=== PATIENT | female | born 1945 | race Caucasian/White ===

== ENCOUNTER 2017-06-09 00:55 | Inpatient (IN) | payer BC, MEDICARE, OTHER ==
[~2017-06-09] VITALS: Ht 157.5 cm; Wt 73.9 kg
[2017-06-09] MEDS ORDERED: SODIUM CHLORIDE 0.9% 1,000 ML IV ONE (01:39)
[2017-06-09] MEDS ORDERED: ASPIRIN 81MG TABLET PO ONE (01:45)
[2017-06-09 01:56] LABS: BASOPHILS % 0.4 % (0.0-2.0); EOSINOPHILS % 3.5 % (0.0-5.0); HEMATOCRIT. 40.8 % (36.0-48.0); HEMOGLOBIN. 13.4 g/dL (12.0-16.0); LYMPHOCYTES % 8.8 % (20.0-50.0); MEAN CORPUSCULAR HEMOGLOBIN 31.9 pg (28.0-32.0); MEAN PLATELET VOLUME 8.4 fl (7.4-10.4); MONOCYTES % 6.5 % (2.0-8.0); NEUTROPHILS % 80.8 % (40.0-76.0); PLATELET 238 x1000/uL (130-400); RED BLOOD CELL COUNT 4.21 mill/uL (4.2-5.4); RED CELL DISTRIBUTION WIDTH 15.4 % (11.6-14.6)
[2017-06-09 02:04] LABS: PROTHROMBIN TIME 10.7 sec (9.4-11.6)
[2017-06-09 02:12] LABS: CARBON DIOXIDE 30 mEq/L (21-32); CHLORIDE 100 mEq/L (98-107); TROPONIN I < 0.02 ng/mL (0.00-0.04)
[2017-06-09] MEDS ORDERED: ACETAMINOPHEN 325MG TABLET PO PRN (05:45)
[2017-06-09] MEDS ORDERED: CLONIDINE 0.1MG TABLET PO PRN (05:45)
[2017-06-09] MEDS ORDERED: ONDANSETRON HCL 4MG/2ML VIAL IV PRN (05:45)
[2017-06-09] MEDS ORDERED: MAGNESIUM/ALUMINUM HYDROXIDE/SIMETHICONE 30ML UDC PO PRN (05:45)
[2017-06-09] MEDS ORDERED: DEXTROSE 50% WATER 50ML SYRINGE IV PRN (05:45)
[2017-06-09] MEDS ORDERED: IPRATROPIUM/ALBUTEROL 0.5-3(2.5)MG/3ML NEB INH PRN (05:45)
[2017-06-09] MEDS: BLOOD SUGAR DIAGNOSTIC STRIP TEST SCH ×3 (08:35→17:23)
[2017-06-09 08:40] VITALS: BP 153/60
[2017-06-09] MEDS ORDERED: ENOXAPARIN 40MG/0.4ML SYR SUBCUT SCH (09:00)
[2017-06-09] MEDS ORDERED: DEXT 5%/0.45% NACL 1000ML 1,000 ML IV SCH (09:00)
[2017-06-09] MEDS: INSULIN LISPRO 100 UNITS/ML SUBCUT SCH ×3 (09:11→17:15)
[2017-06-09 12:00] VITALS: BP 135/50
[2017-06-09 16:51] VITALS: BP 117/44
[2017-06-09 17:40] VITALS: BP 117/44
[2017-06-09] MEDS ORDERED: INSULIN LISPRO 100 UNITS/ML SUBCUT NR (17:45)
== END 2017-06-09 19:32 | disposition home or self-care (01) | DRG 637 ==
LOC: ER 00:55 → 5WST 03:16 → EDBEDREQ 03:19 → EDBEDREQTM 03:19 → ENRESERV 07:06
PROVIDERS: ADMIT Internal Medicine; ATTEND Internal Medicine
DX: E11.649 Type 2 diabetes mellitus with hypoglycemia without coma (principal); G93.41 Metabolic encephalopathy; J44.9 Chronic obstructive pulmonary disease, unspecified; Z82.49 Family history of ischemic heart disease and other diseases of the circulatory system; Z83.3 Family history of diabetes mellitus; Z88.2 Allergy status to sulfonamides
CPT/HCPCS: 36415; 70450; 71010; 80053; 82962; 83880; 84484; 85025; 85610; 93005; J1650; J1815; J7030

== ENCOUNTER 2017-07-02 05:15 | Emergency (ER) | payer MEDICARE ==
[~2017-07-02] VITALS: Ht 165.1 cm; Wt 78.0 kg
[2017-07-02 06:53] LABS: HEMATOCRIT. 39.9 % (36.0-48.0); MEAN CORPUSCULAR HEMOGLOBIN 31.2 pg (28.0-32.0); MEAN CORPUSCULAR VOLUME 96.1 fL (81.0-99.0); MEAN PLATELET VOLUME 7.9 fl (7.4-10.4); PLATELET 290 x1000/uL (130-400); RED BLOOD CELL COUNT 4.15 mill/uL (4.2-5.4)
[2017-07-02 07:15] LABS: CARBON DIOXIDE 34 mEq/L (21-32); CHLORIDE 99 mEq/L (98-107)
[2017-07-02 07:16] LABS: TROPONIN I < 0.02 ng/mL (0.00-0.04)
[2017-07-02] MEDS ORDERED: SODIUM CHLORIDE 0.9% 1,000 ML IV ONE (07:22)
[2017-07-02 08:01] LABS: CLARITY URINE CLEAR (CLEAR); COLOR URINE YELLOW (YELLOW); KETONES URINE NEGATIVE (NEGATIVE); LEUKOCYTE ESTERASE URINE NEGATIVE (NEGATIVE); NITRITE URINE NEGATIVE (NEGATIVE); OCCULT BLOOD URINE NEGATIVE (NEGATIVE); PROTEIN URINE NEGATIVE (NEGATIVE); SPECIFIC GRAVITY URINE 1.011 (1.005-1.030); UROBILINOGEN URINE 0.2 E.U./dL (0.2-1.0)
[2017-07-02 09:54] LABS: PLATELET ESTIMATE NORMAL
[2017-07-02 10:13] VITALS: BP 173/80
== END 2017-07-02 10:27 | disposition home or self-care (01) ==
LOC: ER 05:15
DX: E11.649 Type 2 diabetes mellitus with hypoglycemia without coma (principal); J45.909 Unspecified asthma, uncomplicated; I10 Essential (primary) hypertension; D72.829 Elevated white blood cell count, unspecified; Z79.4 Long term (current) use of insulin; Z87.891 Personal history of nicotine dependence; Z88.2 Allergy status to sulfonamides
CPT/HCPCS: 36415; 71045; 80053; 81001; 82962; 83605; 84484; 85025; 87040; 87086; 93005; 96360; 96361; 99285; J7030